=== PATIENT | male | born 1975 | race Caucasian/White ===

== ENCOUNTER 2023-09-26 23:10 | Emergency (ER) | payer OTHER ==
[2023-09-27] MEDS: Sodium Chloride 0.9% 1,000 ML IV SCH ×3 (00:36→03:10)
[2023-09-27] MEDS: Pantoprazole 40 MG Vial IVPUSH ONE (00:36)
[2023-09-27] MEDS: Ondansetron 4 MG/2 ML SDV IVPUSH ONE ×2 (00:36→02:12)
[2023-09-27] MEDS: Ketorolac 30 MG/ML SDV IVPUSH ONE (00:36)
[2023-09-27 00:37] LABS: HEMATOCRIT 49.2 % (38.3-50.1); HEMOGLOBIN 16.6 g/dL (12.9-17.7); MEAN CORPUSCULAR HEMOGLOBIN 31.4 pg (27.0-33.3); MEAN CORPUSCULAR HGB CONC 33.7 g/dL (28.7-35.3); MEAN CORPUSCULAR VOLUME 92.9 fL (80.8-98.7); MEAN PLATELET VOLUME 8.1 fL (6.7-11.0); PLATELET COUNT,PLT 260 x10(3)uL (117-477); RED BLOOD CELL COUNT 5.29 x10(6)uL (3.90-5.90); RED CELL DISTRIBUTION WIDTH 12.7 % (12.4-15.0); WHITE BLOOD CELL COUNT,WBC 17.8 x10-3/uL (3.2-10.1)
[2023-09-27 00:39] LABS: BLOOD UREA NITROGEN,BUN 11 mg/dL (7-18); BUN/CREATININE RATIO 7.3 (9-20); CALCIUM 9.8 mg/dL (8.6-10.2); CARBON DIOXIDE,CO2 30 mmol/L (21-32); CHLORIDE,CL 99 mmol/L (100-110); CREATININE 1.5 mg/dL (0.70-1.30); EST CRCL DRUG DOSING (CG) 63.54 mL/min; ESTIMATED GFR 58 mL/min (>60); GLUCOSE RANDOM 131 mg/dL (80-116); SODIUM,NA 137 mmol/L (135-145)
[2023-09-27 00:40] LABS: LIPASE 32 U/L (16-77)
[2023-09-27 00:45] LABS: BILIRUBIN,URINE NEGATIVE (NEGATIVE); GLUCOSE,URINE NORMAL (NORMAL); KETONES,URINE 15 mg/dL (NEGATIVE); LEUKOCYTE ESTERASE,URINE SMALL (NEGATIVE); NITRITE,URINE NEGATIVE (NEGATIVE); OCCULT BLOOD,URINE LARGE (NEGATIVE); PROTEIN,URINE 30 mg/dL (NEGATIVE); UROBILINOGEN,URINE 1 mg/dL (NEGATIVE)
[2023-09-27 00:45] LABS: ALANINE AMINOTRANSFERASE,ALT 28 U/L (12-36); ALKALINE PHOSPHATASE 98 IU/L (56-112); ASPARTATE AMNIOTRANSFERASE,AST 15 IU/L (5-25); BILIRUBIN TOTAL 0.5 mg/dL (0.1-1.3); C-REACTIVE PROTEIN < 0.50 mg/dL (<0.50); PROTEIN TOTAL,TP 8.1 g/dL (6.0-8.0)
[2023-09-27 00:46] LABS: AMORPHOUS SEDIMENT,URINE MANY; APPEARANCE,URINE CLOUDY (CLEAR); BACTERIA,URINE FEW (NS); COLOR,URINE YELLOW (YELLOW); SQUAMOUS EPITHELIAL CELLS,UR OCCASIONAL (NS,R,O); WBC,URINE 0-5 (0-5)
[2023-09-27 00:56] LABS: LYMPHOCYTES PERCENT MAN 9 % (13-37); SEG NEUTROPHILS PERCENT MAN 84 % (46-82)
[2023-09-27 00:57] LABS: MONOCYTES PERCENT MAN 7 % (4-12)
[2023-09-27 01:07] LABS: INFLUENZA A NAA NEGATIVE (NEGATIVE); INFLUENZA B NAA NEGATIVE (NEGATIVE)
[2023-09-27 01:08] LABS: CORONAVIRUS COVID-19 NAA NEGATIVE (NEGATIVE)
[2023-09-27] MEDS: Iopamidol 755 Mg/ML 100 ML Bottle IV ONE (01:09)
[2023-09-27] MEDS: cefTRIAXone 2 GM Vial IVPUSH ONE (01:12)
[2023-09-27] MEDS: metroNIDAZOLE/Normal Saline 500 MG in Premix Bag 1 BAG IV ONE (01:13)
[2023-09-27] MEDS: Tamsulosin 0.4 MG Cap.ER PO ONE (02:11)
[2023-09-27] MEDS: Morphine 4 MG/ML VIAL IVPUSH ONE (02:12)
[2023-09-27 06:19] VITALS: BP 111/80; PULSE 90
== END 2023-09-27 06:15 | disposition home or self-care (01) ==
LOC: FB.ED 23:10
DX: N23 Unspecified renal colic (principal); N13.2 Hydronephrosis with renal and ureteral calculous obstruction; E87.20 Acidosis, unspecified; N17.8 Other acute kidney failure; E86.1 Hypovolemia; D72.829 Elevated white blood cell count, unspecified; F17.210 Nicotine dependence, cigarettes, uncomplicated; Z20.822 Contact with and (suspected) exposure to COVID-19; Z79.899 Other long term (current) drug therapy
CPT/HCPCS: 0240U; 36415; 74177; 80053; 81001; 83605; 83690; 85025; 86140; 87040; 96361; 96365; 96375; 96376; 99284; 99284-25; A9270-GY; C9113; J0696; J1885; J2270; J2405; J3490; J7030; Q9967